=== PATIENT | male | born 1990 | race Caucasian/White ===

== ENCOUNTER → 2017-08-20 09:42 | Emergency (ER) | payer BC, OTHER ==
[~2017-08-20 09:42] MED LIST: Ondansetron ODT TAB* 4 MG PO ONE; Raltegravir* 400 MG TAB PO ONE; Tenofovir/Emtricitab 200/300 * TAB PO ONE
[2017-08-20 10:38] LABS: ABS Basophils 0.1 10^3/ul (0-0.2); ABS Eosinophils 0.1 10^3/ul (0-0.6); ABS Lymphocytes 1.4 10^3/ul (1.0-4.8); ABS Monocytes 0.5 10^3/ul (0-0.8); ABS Neutrophils 4.1 10^3/ul (1.5-7.7); ABS Nucleated RBC 0 10^3/ul; Eosinophil % 2.1 % (0-6); Hematocrit 47 % (42-52); Hemoglobin 16.3 g/dl (14.0-18.0); Lymphocyte % 22.7 % (25-47); Mean Corpuscular HGB Conc 35 g/dl (31-36); Mean Corpuscular Hemoglobin 29 pg (27-31); Mean Corpuscular Volume 83 fL (80-94); Mean Platelet Volume 9.6 um3 (7.4-10.4); Nucleated Red Blood Cells % 0.1; Platelet Count 153 10^3/ul (150-450); Red Blood Count 5.64 10^6/ul (4.00-5.40); Red Cell Distribution Width 13 % (10.5-15); White Blood Count 6.3 10^3/ul (3.5-10.8)
[2017-08-20 10:56] LABS: EGFR Non-African American 99.8 (>60)
[2017-08-20 12:15] VITALS: BP 00/00
--- NOTE | 2017-08-25 06:35 | ED ---
Deon Escamilla Tariq, scribed for Miles Covarrubias MD on 08/20/17 at 1106 . - HPI Summary HPI Summary: A 26 y/o patient presents to ED c/o skin puncture. According to pt, he was assisting with surgery when he noticed a skin hook (not hollow, solid) pricked his left thumb. It was a 2 prong skin hook. The incident happened in the field however it had not gone into patient. He didn't notice prick until after he took off his glove. The glove had been in the field and there was blood inside the glove. Time of exposure was 0900. No other health problems. PCP is Lyle Lawrence. - History of Current Complaint Chief Complaint: EDExposureBodyFluid Stated Complaint: EXPOSURE-SKIN HOOK STICK Time Seen by Provider: 08/20/17 09:53 Needlestick: Solid Needle Depth of Needlestick: Puncture Bleeding at Site: Yes Body Fluid Exposure: Other - UNSURE - Source Information HIV: Unknown PMH/Surg Hx/FS Hx/Imm Hx Endocrine/Hematology History: Denies: Hx Anticoagulant Therapy, Hx Blood Disorders, Hx Diabetes Cardiovascular History: Denies: Hx Cardiac Arrest, Hx Congestive Heart Failure, Hx Hypertension Respiratory History: Denies: Hx Asthma GI History: Denies: Hx Gall Bladder Disease History: Denies: Hx Kidney Infection, Hx Kidney Stones, Hx Renal Disease Infectious Disease History: No Infectious Disease History: Denies: Hx of Known/Suspected MRSA, Traveled Outside the [place] in Last 30 Days - Family History Known Family History: Positive: Hypertension, Diabetes, Other - cancer - gastric , colorectal, prostate - Social History Alcohol Use: Occasionally Hx Substance Use: No Substance Use Type: Reports: None Hx Tobacco Use: No Smoking Status (MU): Never Smoked Tobacco Review of Systems Negative: Fever, Chills Positive: Erythema Negative: Sore Throat Negative: Chest Pain Negative: Shortness Of Breath, Cough Negative: Abdominal Pain, Vomiting, Nausea Negative: dysuria, hematuria Negative: Myalgia, Edema Positive: Other - POSITIVE: Prick in left thumb. Negative: Rash Neurological: Other - NEGATIVE: Dizziness All Other Systems Reviewed And Are Negative: Yes Physical Exam - Summary Physical Exam Summary: Constitutional: Well-developed, Well-nourished, Alert. (-) Distressed Skin: Warm, Dry HENT: Normocephalic; Atraumatic Eyes: Conjunctiva normal Neck: Musculoskeletal ROM normal neck. (-) JVD, (-) Stridor, (-) Tracheal deviation Cardio: Rhythm regular, rate normal, Heart sounds normal; Intact distal pulses; The pedal pulses are 2+ and symmetric. Radial pulses are 2+ and symmetric. (-) Murmur Pulmonary/Chest wall: Effort normal. (-) Respiratory distress, (-) Wheezes, (-) Rales Abd: Soft, (-), epigastric tenderness, (-) Distension, (-) Guarding, (-) Rebound Musculoskeletal: (-) Edema Lymph: (-) Cervical adenopathy Neuro: Alert, Oriented x3 Psych: Mood and affect Normal Triage Information Reviewed: Yes Vital Signs On Initial Exam: Initial Vitals Temp Pulse Resp BP Pulse Ox 98.8 F 85 11 140/87 100 08/20/17 09:48 08/20/17 09:48 08/20/17 09:48 08/20/17 09:48 08/20/17 09:48 Vital Signs Reviewed: Yes Diagnostics - Vital Signs Vital Signs Temp Pulse Resp BP Pulse Ox 08/20/17 09:48 98.8 F 85 11 140/87 100 - Laboratory Lab Results: Lab Results 08/20/17 Range/Units 10:28 WBC 6.3 (3.5-10.8) 10^3/ul RBC 5.64 H (4.00-5.40) 10^6/ul Hgb 16.3 (14.0-18.0) g/dl Hct 47 (42-52) % MCV 83 (80-94) fL MCH 29 (27-31) pg MCHC 35 (31-36) g/dl RDW 13 (10.5-15) % Plt Count 153 (150-450) 10^3/ul MPV 9.6 (7.4-10.4) um3 Neut % (Auto) 65.9 (38-83) % Lymph % (Auto) 22.7 L (25-47) % Wake % (Auto) 8.5 H (0-7) % Eos % (Auto) 2.1 (0-6) % Baso % (Auto) 0.8 (0-2) % Absolute Neuts (auto) 4.1 (1.5-7.7) 10^3/ul Absolute Lymphs (auto) 1.4 (1.0-4.8) 10^3/ul Absolute Monos (auto) 0.5 (0-0.8) 10^3/ul Absolute Eos (auto) 0.1 (0-0.6) 10^3/ul Absolute Basos (auto) 0.1 (0-0.2) 10^3/ul Absolute Nucleated RBC 0 10^3/ul Nucleated RBC % 0.1 Result Diagrams: 08/20/17 10:28 08/20/17 10:28 Lab Statement: Any lab studies that have been ordered have been reviewed, and results considered in the medical decision making process. Needlestick Course/Dx - Course Course Of Treatment: SOURCE PATIENTS RAPID HIV WAS NEGATIVE. NO INDICATION FOR POST-EXPOSURE PROPHYLAXIS AT THIS TIME. DX IS NEEDLESTICK. - Diagnoses Provider Diagnoses: Needlestick injury accident Discharge - Sign-Out/Discharge Documenting (check all that apply): Discharge/Admit/Transfer - DISCHARGE - Discharge Plan Condition: Stable Disposition: HOME Patient Education Materials: Needle Stick Injuries (ED) Referrals: Lyle Chester MD [Primary Care Provider] - Pavel Dimas MD [Medical Doctor] - 5 Days (FOLLOW UP WITH DR. DIMAS IN 5-7 DAYS.) Additional Instructions: RETURN TO THE EMERGENCY DEPARTMENT FOR CHANGING OR WORSENING SYMPTOMS The documentation as recorded by the Deon altman Tariq accurately reflects the service I personally performed and the decisions made by , Miles Covarrubias MD.
== END | disposition home or self-care (01) ==
LOC: ED 09:42
DX: S61.032A Puncture wound without foreign body of left thumb without damage to nail, initial encounter (principal); W46.0XXA Contact with hypodermic needle, initial encounter; Y93.F9 Activity, other caregiving; Y92.234 Operating room of hospital as the place of occurrence of the external cause; Y99.0 Civilian activity done for income or pay; Z11.4 Encounter for screening for human immunodeficiency virus [HIV]; Z82.49 Family history of ischemic heart disease and other diseases of the circulatory system; Z83.3 Family history of diabetes mellitus; Z80.0 Family history of malignant neoplasm of digestive organs; Z80.42 Family history of malignant neoplasm of prostate
CPT/HCPCS: 36415; 80053; 83605; 85025; 86703; 86706; 86803; 87340; 99282; A9270-GY

== ENCOUNTER 2018-03-04 16:55 | Emergency (ER) | payer BC, OTHER ==
[2018-03-04] MEDS ORDERED: NS 0.9% 1000 ML*IV.FLUID IV ONE (17:49)
--- NOTE | 2018-03-04 17:49 | ED ---
HPI Febrile Illness - HPI Summary HPI Summary: Patient is a 27 y/o M presenting to ED with complaints of fever, nonproductive cough, sore throat, rhinorrhea, post-nasal drip, ESCALANTE, neck stiffness/soreness, congestion, joint pain at knee/ankles. No diarrhea, photophobia, pain with movement of neck. Patient went to [facility] yesterday. He was diagnosed with flu, sinus infection and placed on Tamiflu and Augmentin. Patient states that he was called today and told that his flu test was actually negative, he was told to stop taking Tamiful. Patient has been taking ibuprofen and Tylenol. Last Tylenol was 1300. PSHx of appendectomy, no other PMHx, does not smoke, no drug usage. FMHx of cardiac disease, diabetes, CA. On triage, pain is rated 3/10 , Tylenol is noted to alleviate fever, nothing is noted to aggravate Sx. Home medications and allergies are reviewed. - History of Current Complaint Chief Complaint: EDShortnessOfBreath Time Seen by Provider: 03/04/18 17:38 Hx Obtained From: Patient Onset/Duration: Still Present Timing: Constant Current Severity: Mild - 3/10 Pain Intensity: 3 Pain Scale Used: 0-10 Numeric Aggravating Factors: Nothing Alleviating Factors: OTC Medicine - tylenol Associated Signs and Symptoms: Cough, Headache, Joint Pain - KNEES/ANKLES, Sore Throat, Stiff Neck, Other: - POSITIVE - RHINORRHEA, POST NASAL DRIP, CONGESTION ; NEGATIVE - DIARRHEA, PHOTOPHOBIA, PAIN WITH MOVEMENT OF NECK - Allergy/Home Medications Allergies/Adverse Reactions: Allergies Allergy/AdvReac Type Severity Reaction Status Date / Time No Known Allergies Allergy Verified 03/04/18 17:43 PMH/Surg Hx/FS Hx/Imm Hx Endocrine/Hematology History: Denies: Hx Anticoagulant Therapy, Hx Blood Disorders, Hx Diabetes Cardiovascular History: Denies: Hx Cardiac Arrest, Hx Congestive Heart Failure, Hx Hypertension Respiratory History: Denies: Hx Asthma GI History: Denies: Hx Gall Bladder Disease History: Denies: Hx Kidney Infection, Hx Kidney Stones, Hx Renal Disease - Surgical History Surgery Procedure, Year, and Place: APPENDECTOMY Infectious Disease History: No Infectious Disease History: Denies: Hx of Known/Suspected MRSA, Traveled Outside the [place] in Last 30 Days - Family History Known Family History: Positive: Hypertension, Diabetes, Other - cancer - gastric , colorectal, prostate - Social History Alcohol Use: Occasionally Hx Substance Use: No Substance Use Type: Reports: None Hx Tobacco Use: No Smoking Status (MU): Never Smoked Tobacco Review of Systems Positive: Fever, Other - POSITIVE - CONGESTION Negative: Photophobia Positive: Sore Throat, Nasal Discharge - RHINORRHEA , Other - POSITIVE - POST NASAL DRIP Positive: Cough Negative: Diarrhea Positive: Myalgia, Other - POSITIVE - NECK STIFFNESS/SORENESS, NO PAIN WITH NECK MOVEMENT; JOINT PAIN AT ANKLES AND KNEES Positive: Headache All Other Systems Reviewed And Are Negative: Yes Physical Exam - Summary Physical Exam Summary: VITAL SIGNS: Reviewed. GENERAL: Patient is a well-developed and nourished male who is lying comfortable in the stretcher. Patient is not in any acute respiratory distress. HEAD AND FACE: No signs of trauma. No ecchymosis, hematomas or skull depressions. No sinus tenderness. EYES: PERRLA, EOMI x 2, No injected conjunctiva, no nystagmus. EARS: Hearing grossly intact. Ear canals and tympanic membranes are within normal limits. MOUTH: Oropharynx within normal limits. Pharyngeal erythema is noted. NECK: Supple, trachea is midline, no adenopathy, no JVD, no carotid bruit, no c- spine tenderness, neck with full ROM. CHEST: Symmetric, no tenderness at palpation LUNGS: Clear to auscultation bilaterally. No wheezing or crackles. CVS: Tachycardia, S1 and S2 present, no murmurs or gallops appreciated. ABDOMEN: Soft, non-tender. No signs of distention. No rebound no guarding, and no masses palpated. Bowel sounds are normal. EXTREMITIES: FROM in all major joints, no edema, no cyanosis or clubbing. NEURO: Alert and oriented x 3. No acute neurological deficits. Speech is normal and follows commands. No meningeal signs. SKIN: Dry and warm Triage Information Reviewed: Yes Vital Signs On Initial Exam: Initial Vitals Temp Pulse Resp BP Pulse Ox 101.5 F 131 20 145/97 99 03/04/18 17:08 03/04/18 17:08 03/04/18 17:08 03/04/18 17:08 03/04/18 17:08 Vital Signs Reviewed: Yes Diagnostics - Vital Signs Vital Signs Temp Pulse Resp BP Pulse Ox 03/04/18 17:08 101.5 F 131 20 145/97 99 - Laboratory Result Diagrams: 03/04/18 18:05 03/04/18 18:05 Lab Statement: Any lab studies that have been ordered have been reviewed, and results considered in the medical decision making process. - EKG 1816 Cardiac Rate: Tachycardia - rate of 130 bpm EKG Rhythm: Sinus Bradycardia Summary of EKG Findings: EKG showed sinus tachycardia with rate of 130 BPM, no ST elevation, normal axis. Course/Dx - Course Assessment/Plan: Patient is a 27 y/o M presenting to ED with complaints of fever , nonproductive cough, sore throat, rhinorrhea, post-nasal drip, ESCALANTE, neck stiffness/soreness, congestion, joint pain at knee/ankles. No diarrhea, photophobia, pain with movement of neck. Patient went to [facility] yesterday. He was diagnosed with flu, sinus infection and placed on Tamiflu and Augmentin. Patient states that he was called today and told that his flu test was actually negative, he was told to stop taking Tamiflu. Patient has been taking ibuprofen and Tylenol. Last Tylenol was 1300. PSHx of appendectomy, no other PMHx, does not smoke, no drug usage. FMHx of cardiac disease, diabetes, CA. On triage, pain is rated 3/10, Tylenol is noted to alleviate fever, nothing is noted to aggravate Sx. Home medications and allergies are reviewed. At this time blood work is pending. A chest x-ray is also pending. Initially we used the sepsis protocol and the patient was given 30 ccs per KG and he was given Rocephin since the patient was complaining of cough. At this time the patient will be signed out to Dr. Lockwood at shift change to follow-up for the blood work and chest x-ray. The patient is hemodynamically stable. Alert and oriented 3. - Diagnoses Provider Diagnoses: Fever, Sepsis Discharge - Sign-Out/Discharge Documenting (check all that apply): Sign-Out Patient Signing out patient TO: Samantha Lockwood Receiving patient FROM: Raghu Dougherty - Discharge Plan Referrals: Usama Ospina MD [Primary Care Provider] - - Attestation Statements Document Initiated by Scribe: Yes Documenting Scribe: PRESTON JEFFREY Provider For Whom Scribe is Documenting (Include Credential): RAGHU DOUGHERTY MD Scribe Attestation: IPRESTON , scribed for RAGHU DOUGHERTY MD on 03/04/18 at 1901. Status of Scribe Document: Ready
[2018-03-04] MEDS ORDERED: cefTRIAXone(*) 1 GM in NS 0.9% 50 ML* 50 ML IVPB ONE (17:51)
[2018-03-04] MEDS ORDERED: Acetaminophen TAB* 325 MG PO ONE (18:10)
[2018-03-04 18:39] LABS: ABS Basophils 0 10^3/ul (0-0.2); ABS Eosinophils 0 10^3/ul (0-0.6); ABS Lymphocytes 0.9 10^3/ul (1.0-4.8); ABS Monocytes 1.1 10^3/ul (0-0.8); ABS Neutrophils 8.6 10^3/ul (1.5-7.7); ABS Nucleated RBC 0 10^3/ul; Eosinophil % 0.2 %; Hematocrit 47 % (42-52); Lymphocyte % 8.3 %; Mean Corpuscular HGB Conc 34 g/dl (31-36); Mean Corpuscular Hemoglobin 29 pg (27-31); Mean Corpuscular Volume 83 fL (80-94); Nucleated Red Blood Cells % 0.4; Platelet Count 133 10^3/ul (150-450); Red Blood Count 5.61 10^6/ul (4.00-5.40); Red Cell Distribution Width 13 % (10.5-15); White Blood Count 10.6 10^3/ul (3.5-10.8)
[2018-03-04 18:43] LABS: Activated Partial Thrombo Time 39.6 seconds (26.0-36.3); INR 1.39 (0.77-1.02)
[2018-03-04 18:46] LABS: Urine Appearance Cloudy; Urine Bacteria Absent (Absent); Urine Bilirubin Negative (Negative); Urine Blood 1+ (Negative); Urine Color Amber; Urine Glucose Negative (Negative); Urine Ketones 1+ (Negative); Urine Nitrite Negative (Negative); Urine Protein 2+(100 mg/dL) (Negative); Urine Red Blood Cell 2+(6-10/hpf) (Absent); Urine Specific Gravity 1.033 (1.010-1.030); Urine Urobilinogen Positive (Negative); Urine White Blood Cell Absent (Absent)
[2018-03-04 18:53] LABS: Albumin 4.5 g/dL (3.2-5.2); Albumin/Globulin Ratio 1.5 (1-3); BUN/Creatinine Ratio 11.7 (8-20); C Reactive Protein 116.32 mg/L (<8.01); Calcium 9.3 mg/dL (8.6-10.3); Globulin 3.1 g/dL (2-4); Potassium 3.8 mmol/L (3.5-5.0); Total Bilirubin 1.5 mg/dL (0.2-1.0); Total Protein 7.6 g/dL (6.4-8.9)
[2018-03-04] MEDS ORDERED: Ibuprofen TAB* 400 MG PO ONE (19:11)
[2018-03-04] MEDS ORDERED: Ibuprofen TAB* 800 MG PO ONE ×2 (19:12→19:15)
--- NOTE | 2018-03-04 19:18 | ED ---
Progress - Progress Note Progress Note: Patient was signed out from Dr. Dougherty to Dr. Lockwood upon provider shift change pending CXR and lab results. - Results/Orders Results/Orders: CXR, per ED physician pending official report, reveals no acute process. Course/Dx - Course Course Of Treatment: Patient was signed out from Dr. Dougherty to Dr. Lockwood upon provider shift change pending CXR and lab results. CXR, per ED physician pending official report, reveals no acute process. Test results with no significant abnormalities. Patient will be discharged home. Patient is agreeable with this plan. - Diagnoses Provider Diagnoses: Viral syndrome Discharge - Sign-Out/Discharge Documenting (check all that apply): Patient Departure - discharge, Receiving Sign-Out Receiving patient FROM: Raghu Dougherty - Discharge Plan Condition: Stable Disposition: HOME Patient Education Materials: Viral Syndrome (ED) Forms: *Work Release Referrals: Usama Ospina MD [Primary Care Provider] - Additional Instructions: Follow up with primary care physician in 1-2 days. Return to the emergency department with any new or worsening symptoms. - Attestation Statements Document Initiated by Scribe: Yes Documenting Scribe: Nadiya Strong Provider For Whom John is Documenting (Include Credential): Samantha Lockwood MD Scribe Attestation: Nadiya Escamilla scribed for Samantha Lockwood MD on 03/04/18 at 2013. Status of Scribe Document: Ready
[2018-03-04 19:39] LABS: Erythrocyte Sed Rate 20 mm/Hr (0-14)
[2018-03-04 20:32] VITALS: BP 95/45
== END 2018-03-04 21:09 | disposition home or self-care (01) ==
LOC: ED 16:55
DX: R50.9 Fever, unspecified (principal); A41.9 Sepsis, unspecified organism; B34.9 Viral infection, unspecified; R05 Cough; R51 Headache
CPT/HCPCS: 36415; 71045; 80053; 81003; 81015; 82550; 83605; 83880; 84484; 85025; 85610; 85652; 85730; 86140; 86308; 87040; 87651; 93005; 96361; 96365; 99284; A9270-GY; J0696

== ENCOUNTER 2018-05-05 16:14 | Emergency (ER) | payer BC ==
--- NOTE | 2018-05-05 17:38 | ED ---
Respiratory - HPI Summary HPI Summary: 27-year-old male presents with complaints of left-sided chest wall pain and shortness of breath that started this morning. States he has had 2-3 day history of nasal congestion and runny nose. Yesterday had one episode of hemoptysis and another today. States he was feeling very "winded" at work today. He was treated at the beginning of March for pneumonia. Denies fever , chills, ear pain, sore throat, palpitations, leg swelling or calf tenderness. Denies personal or family history of clotting disorders. States he has been making frequent trips by airplane to [place] with his most recent trip 1 week ago. - History of Current Complaint Chief Complaint: UCRespiratory Stated Complaint: COUGH Time Seen by Provider: 05/05/18 17:34 Hx Obtained From: Patient Pain Intensity: 3 - Allergy/Home Medications Allergies/Adverse Reactions: Allergies Allergy/AdvReac Type Severity Reaction Status Date / Time No Known Allergies Allergy Verified 05/05/18 17:11 PMH/Surg Hx/FS Hx/Imm Hx Endocrine/Hematology History: Denies: Hx Anticoagulant Therapy, Hx Blood Disorders, Hx Diabetes Cardiovascular History: Denies: Hx Cardiac Arrest, Hx Congestive Heart Failure, Hx Hypertension Respiratory History: Denies: Hx Asthma GI History: Denies: Hx Gall Bladder Disease History: Denies: Hx Kidney Infection, Hx Kidney Stones, Hx Renal Disease - Surgical History Surgery Procedure, Year, and Place: APPENDECTOMY Infectious Disease History: No Infectious Disease History: Denies: Hx of Known/Suspected MRSA, Traveled Outside the in Last 30 Days - Family History Known Family History: Positive: Hypertension, Diabetes, Other - cancer - gastric , colorectal, prostate - Social History Occupation: Employed Full-time Lives: With Family Alcohol Use: Occasionally Hx Substance Use: No Substance Use Type: Reports: None Hx Tobacco Use: No Smoking Status (MU): Never Smoked Tobacco Review of Systems Positive: Fatigue. Negative: Fever, Chills Positive: Nasal Discharge, Other - Nasal congestion. Negative: Epistaxis, Sore Throat, Ear Ache Positive: Other - Pleuritic chest wall pain. Negative: Palpitations Positive: Shortness Of Breath, Cough Gastrointestinal: Negative Genitourinary: Negative Musculoskeletal: Negative Skin: Negative Neurological: Negative All Other Systems Reviewed And Are Negative: No Physical Exam - Summary Physical Exam Summary: GENERAL APPEARANCE: Well developed, well nourished, alert and cooperative, and appears to be in no acute distress. EYES: Conjunctiva clear. No drainage. Vision is grossly intact. EARS: External auditory canals and tympanic membranes clear, hearing grossly intact. NOSE: Mild nasal congestion without discharge. THROAT: Pharynx normal. No tonsilar inflammation, swelling, exudate, or lesions. Uvula midline. Oral cavity normal. Teeth and gingiva in good general condition. NECK: Neck supple, non-tender without lymphadenopathy. CARDIAC: Normal S1 and S2. No S3, S4 or murmurs. Rhythm is regular. There is no peripheral edema, cyanosis or pallor. Extremities are warm and well perfused. Capillary refill is less than 2 seconds. Peripheral pulses intact. LUNGS: Clear to auscultation without rales, rhonchi, wheezing or diminished breath sounds. No chest wall tenderness with palpation. ABDOMEN: Positive bowel sounds. Soft, nondistended, nontender. No guarding or rebound. No masses or hepatosplenomegally. MUSKULOSKELETAL: ROM intact to all extremities. No joint erythema or tenderness. Normal muscular development. Normal gait. SKIN: Skin normal color, texture and turgor with no lesions or eruptions. Triage Information Reviewed: Yes Vital Signs On Initial Exam: Initial Vitals Temp Pulse Resp BP Pulse Ox 99.8 F 109 18 120/77 99 05/05/18 17:07 05/05/18 17:07 05/05/18 17:07 05/05/18 17:07 05/05/18 17:07 Vital Signs Reviewed: Yes Diagnostics - Vital Signs Vital Signs Temp Pulse Resp BP Pulse Ox 05/05/18 17:07 99.8 F 109 18 120/77 99 - Laboratory Lab Statement: Any lab studies that have been ordered have been reviewed, and results considered in the medical decision making process. - Radiology No standard instances Radiology Interpretation Completed By: Radiologist Summary of Radiographic Findings: Order Information: CHEST PA LAT 2 VWS. Accession Number: [id number]. CPT: 90606. INDICATION: LEFT side pleuritic chest pain. Shortness of breath. Pneumonia 6 weeks ago. COMPARISON: March. TECHNIQUE: Dual energy PA and routine lateral views of the chest were obtained. REPORT: Clear lungs and pleural spaces. Negative for pneumothorax. The heart, pulmonary vasculature, and mediastinal contours are unremarkable. Unremarkable osseous structures and soft tissue contours. IMPRESSION: #. Resolved previous LEFT basilar inflammatory infiltrate. #. No evidence for acute intrathoracic disease. Disposition - Course Course Of Treatment: 27-year-old male presents with complaints of left-sided chest wall pain and shortness of breath that started this morning. States he has had 2-3 day history of nasal congestion and runny nose. Yesterday had one episode of hemoptysis and another today. States he was feeling very "winded" at work today. He was treated at the beginning of March for pneumonia. Denies fever, chills, ear pain, sore throat, palpitations, leg swelling or calf tenderness. Denies personal or family history of clotting disorders. States he has been making frequent trips by airplane to [place] with his most recent trip 1 week ago. Afebrile. Mildly tachycardic at a rate of 109 otherwise vital signs stable. Exam reveals a young adult male in no acute distress with mild nasal congestion without discharge, normal pharynx, no cervical lymphadenopathy, clear bilateral breath sounds, and otherwise unremarkable exam. Chest x-ray showed resolved previous left basilar inflammatory infiltrate without any evidence of acute cardiopulmonary pathology. Although patient has no risk factors for PE he does have a Wells score of 2.[address] at moderate risk. I am recommending that he be further evaluated emergency room at this time. Patient is agreeable to this and is requesting to go via ambulance. - Differential Dx - Cardiopulmonary Differential Diagnoses - Cardiopulmonary: Bronchitis, Chest Wall Pain, Lower Resp Infection, Pneumothorax, Pulmonary Embolism, Sinusitis - Diagnoses Provider Diagnoses: Pleuritic chest pain, Shortness of breath - Physician Notifications Discussed Care Of Patient With: Nadiya Lezama Time Discussed With Above Provider: 18:55 Instructed by Provider To: MD Will See In ED Discharge - Sign-Out/Discharge Documenting (check all that apply): Patient Departure All imaging exams completed and their final reports reviewed: Yes - Discharge Plan Condition: Stable Disposition: HOME-RECOMMEND TO ED Patient Education Materials: Chest Wall Pain (ED), Shortness of Breath (ED) Referrals: Usama Ospina MD [Primary Care Provider] - Additional Instructions: The x-ray performed in the clinic today showed no evidence of pneumonia. With your history of blood in your sputum, the pleuritic chest pain, and shortness of breath I need to consider the possibility of a blood clot in the lung (pulmonary embolus) therefore I am recommending that you go to the emergency room for further evaluation at this time. We will transfer you via ambulance as you requested. - Billing Disposition and Condition Condition: STABLE Disposition: Home-Recommend to ED
[2018-05-05 18:56] VITALS: BP 165/93
== END 2018-05-05 19:00 | disposition home health service (06) ==
LOC: UCEAST 16:14
DX: R07.81 Pleurodynia (principal); R06.02 Shortness of breath
CPT/HCPCS: 71046; 99213; G0463

== ENCOUNTER 2018-05-05 19:27 | Emergency (ER) | payer BC ==
[2018-05-05] MEDS ORDERED: NS 0.9% 1000 ML** 2,000 ML IV ONE (19:36)
[2018-05-05 20:20] LABS: ABS Basophils 0.1 10^3/ul (0-0.2); ABS Eosinophils 0.1 10^3/ul (0-0.6); ABS Monocytes 1.2 10^3/ul (0-0.8); ABS Neutrophils 11.6 10^3/ul (1.5-7.7); ABS Nucleated RBC 0 10^3/ul; Eosinophil % 0.8 %; Hematocrit 46 % (36-46); Hemoglobin 15.6 g/dL (14.0-18.0); Lymphocyte % 13.2 %; Mean Corpuscular HGB Conc 34 g/dL (31-36); Mean Corpuscular Hemoglobin 28 pg (27-31); Mean Corpuscular Volume 82 fL (80-94); Mean Platelet Volume 9.5 fL (7.4-10.4); Nucleated Red Blood Cells % 0.1; Platelet Count 165 10^3/uL (150-450); Red Blood Count 5.63 10^6 /uL (4.18-5.48); Red Cell Distribution Width 14 % (10.5-15); White Blood Count 14.9 10^3/uL (3.5-10.8)
--- NOTE | 2018-05-05 20:22 | ED ---
Shortness of Breath - HPI Summary HPI Summary: This patient is a 27 year old M brought in by ambulance to [facility] upon referral from Urgent Care accompanied by his mother with a chief complaint of SOB since 16:00. He also reports hemoptysis and chest pain since 21:00 05/04/18. The patient reports CP that began as lower left flank pain and radiates to his chest. The patient notes that he received a CXR when he was at Urgent Care. The patient rates the pain 5/10 in severity. Symptoms aggravated by deep breaths and cough. Symptoms alleviated by nothing. Patient reports sinus congestion since 05/02/16 after getting back from [place]. He reports coughing up bloody sputum morning of 05/04/18. The patient also notes low grade fever since today. Patient denies calf tenderness. Patient had pneumonia in March. In room VS are HR 107, BP 143/91, and SpO2 of 98%. - History of Current Complaint Chief Complaint: EDChestPainROMI Hx Obtained From: Patient Onset/Duration: Sudden Onset, Lasting Hours, Still Present Timing: Constant Current Severity: Moderate Dyspnea At: Rest Aggrevating Factors: Deep Breaths, Other - cough Alleviating Factors: Nothing Associated Signs & Symptoms: Cough (Productive), Cough (Bloody Sputum), Chest Pain w/Cough, Fever - low grade - Allergy/Home Medications Allergies/Adverse Reactions: Allergies Allergy/AdvReac Type Severity Reaction Status Date / Time No Known Allergies Allergy Verified 05/05/18 20:07 Home Medications: Home Medications NK [No Home Medications Reported] 05/05/18 [History Confirmed 05/05/18] PMH/Surg Hx/FS Hx/Imm Hx Endocrine/Hematology History: Denies: Hx Anticoagulant Therapy, Hx Blood Disorders, Hx Diabetes Cardiovascular History: Denies: Hx Cardiac Arrest, Hx Congestive Heart Failure, Hx Hypertension Respiratory History: Denies: Hx Asthma GI History: Denies: Hx Gall Bladder Disease History: Denies: Hx Kidney Infection, Hx Kidney Stones, Hx Renal Disease - Surgical History Surgery Procedure, Year, and Place: APPENDECTOMY Infectious Disease History: No Infectious Disease History: Denies: Hx of Known/Suspected MRSA, Traveled Outside the [place] in Last 30 Days - Family History Known Family History: Positive: Hypertension, Diabetes, Other - cancer - gastric , colorectal, prostate Family History: Blood clots - Social History Alcohol Use: Occasionally Hx Substance Use: No Substance Use Type: Reports: None Hx Tobacco Use: No Smoking Status (MU): Never Smoked Tobacco Review of Systems Positive: Fever ENT: Other - sinus congestion Positive: Chest Pain Positive: Shortness Of Breath, Cough, Other - hemopytsis Musculoskeletal: Other - lower left flank pain All Other Systems Reviewed And Are Negative: Yes Physical Exam - Summary Physical Exam Summary: Appearance: Ill-appearing, moderate pain distress, well-nourished. Mild respiratory distress. Skin: Warm, color reflects adequate perfusion, dry Head: Normal Head/Face inspection, atraumatic Eyes: Conjunctiva clear ENT: Normal inspection Neck: Supple, no nodes, no JVD Respiratory: Diminished breath sounds on left side,No wheezes, Holds his breath to talk but can speak in full sentences. Mild respiratory distress. Cardio: RRR, No murmur, pulses normal, brisk capillary refill Abdomen: Soft, nontender. No CVA tenderness Bowel sounds: Present Musculoskeletal: Strength Intact/ROM intact, no calf tenderness, no edema. Psychological: Normal Neuro: Alert, muscle tone normal, no focal deficit Triage Information Reviewed: Yes Vital Signs On Initial Exam: Initial Vitals Temp Pulse Resp BP Pulse Ox 100.0 F 105 18 143/91 100 05/05/18 19:32 05/05/18 19:32 05/05/18 19:32 05/05/18 19:32 05/05/18 19:32 Vital Signs Reviewed: Yes Diagnostics - Vital Signs Vital Signs Temp Pulse Resp BP Pulse Ox 05/05/18 20:00 102 15 99 05/05/18 19:38 105 97 05/05/18 19:37 100 143/91 99 05/05/18 19:32 100.0 F 105 18 143/91 100 - Laboratory Result Diagrams: 05/05/18 19:56 05/05/18 19:56 Lab Statement: Any lab studies that have been ordered have been reviewed, and results considered in the medical decision making process. - Radiology CXR Radiology Interpretation Completed By: ED Physician - Dr. Alonso, pending official report Summary of Radiographic Findings: no acute disease - EKG 19:43 Cardiac Rate: Tachycardia - at 102 bpm EKG Rhythm: Sinus Tachycardia ST Segment: Non-Specific Ectopy: None EKG Comparison: No Significant Change Summary of EKG Findings: An EKG at 19:43 reveals nml AV/IV CT, nml QTc, and left axis deviation (43). No acute changes. No change from EKG on 03/04/18. Discharge - Sign-Out/Discharge Patient Received Moderate/Deep Sedation with Procedure: No - Discharge Plan Condition: Stable Referrals: Usama Ospina MD [Primary Care Provider] - - Attestation Statements Document Initiated by Scribe: Yes Documenting Scribe: Nadiya Strong Provider For Whom Scribe is Documenting (Include Credential): Emperatriz Alonso MD Scribe Attestation: Nadiya Escamilla, scribed for Emperatriz Alonso MD on 05/05/18 at 2109.
[2018-05-05 20:33] LABS: Activated Partial Thrombo Time 36.4 seconds (26.0-36.3); INR 1.15 (0.77-1.02)
[2018-05-05 20:43] LABS: CKMB ng/mL 0.5 ng/mL (0.6-6.3)
[2018-05-05 20:43] LABS: Influenza A Molecular NEGATIVE (Negative); Influenza B Molecular NEGATIVE (Negative)
[2018-05-05 20:48] LABS: Albumin 4.5 g/dL (3.2-5.2); BUN/Creatinine Ratio 11.4 (8-20); C Reactive Protein 51.26 mg/L (<8.01); Calcium 9.4 mg/dL (8.6-10.3); EGFR African American 127.7 (>60); EGFR Non-African American 105.5 (>60); Globulin 2.3 g/dL (2-4); Potassium 3.7 mmol/L (3.5-5.0); Total Bilirubin 1.2 mg/dL (0.2-1.0); Total Protein 6.8 g/dL (6.4-8.9)
[2018-05-05] MEDS ORDERED: Iohexol 350* (CONTRAST) 500 ML MDV IV ONE (20:52)
[2018-05-05] MEDS ORDERED: Azithromycin TAB* 250 MG PO ONE (22:38)
[2018-05-05 23:53] VITALS: BP 136/80
== END 2018-05-05 23:20 | disposition home or self-care (01) ==
LOC: ED 19:27
DX: J18.9 Pneumonia, unspecified organism (principal); R05 Cough; R07.9 Chest pain, unspecified; R50.9 Fever, unspecified; R06.02 Shortness of breath; R04.2 Hemoptysis
CPT/HCPCS: 36415; 71275; 80053; 82550; 82553; 83605; 84484; 85025; 85379; 85610; 85730; 86140; 93005; 96360; 99284; A9270-GY; Q9967